=== PATIENT | male | born 1970 | race Caucasian/White ===

== ENCOUNTER 2017-11-08 15:25 | Emergency (ER) | payer BC ==
[2017-11-08 17:43] VITALS: BP 103/69
[2017-11-08] MEDS ORDERED: Amoxicillin PO (*) 500 MG CAP PO ONE (18:31)
--- NOTE | 2017-11-08 18:33 | UC ---
Throat Pain/Nasal Lalo HPI - HPI Summary HPI Summary: sore throat and low grade fever several days ago. Denies cough, nasal discharge - History of Current Complaint Chief Complaint: UCRespiratory Stated Complaint: SORE AND SWOLLEN THROAT Time Seen by Provider: 11/08/17 17:56 Hx Obtained From: Patient Onset/Duration: Gradual Onset, Lasting Days Severity: Moderate Pain Intensity: 3 Cough: None - Epiglottits Risk Factors Epiglottis Risk Factors: Negative - Allergies/Home Medications Allergies/Adverse Reactions: Allergies Allergy/AdvReac Type Severity Reaction Status Date / Time No Known Allergies Allergy Verified 11/08/17 17:43 PMH/Surg Hx/FS Hx/Imm Hx Previously Healthy: Yes - Surgical History Surgical History: None - Social History Alcohol Use: Weekly Substance Use Type: None Smoking Status (MU): Never Smoked Tobacco Review of Systems ENT: Sore Throat All Other Systems Reviewed And Are Negative: Yes Physical Exam Triage Information Reviewed: Yes Appearance: Well-Appearing, Well-Nourished Vital Signs: Initial Vital Signs Temp 98.2 F 11/08/17 17:39 Pulse 76 11/08/17 17:39 Resp 18 11/08/17 17:39 BP 103/69 11/08/17 17:39 Pulse Ox 99 11/08/17 17:39 Vital Signs Reviewed: Yes Eyes: Positive: Conjunctiva Clear ENT: Positive: Pharyngeal erythema, TMs normal, Uvula midline Neck: Positive: Supple, Nontender, No Lymphadenopathy Respiratory: Positive: Chest non-tender, Lungs clear, Normal breath sounds, No respiratory distress Cardiovascular: Positive: RRR, No Murmur, Pulses Normal Throat Pain/Nasal Course/Dx - Course Course Of Treatment: Rapid strept positive, started on first dose of amoxil at and continue for 10 days. Tylenol as needed, oral hydration, probiotics, f/u PCP - Differential Dx/Diagnosis Provider Diagnoses: Streptococcal pharyngitis Discharge - Sign-Out/Discharge Documenting (check all that apply): Discharge - Discharge Plan Condition: Stable Disposition: HOME Patient Education Materials: Pharyngitis (ED) Referrals: Ralph Thomason MD [Primary Care Provider] - - Billing Disposition and Condition Condition: STABLE Disposition: HOME
== END 2017-11-08 18:45 | disposition home or self-care (01) ==
LOC: UCEAST 15:25
DX: J02.0 Streptococcal pharyngitis (principal)
CPT/HCPCS: 87651; 99202; A9270-GY; G0463

== ENCOUNTER 2018-11-07 16:40 | Emergency (ER) | payer BC ==
[2018-11-07 16:46] VITALS: BP 112/65
[2018-11-07] MEDS ORDERED: Tetan/Diph/Pertus SYR(Tdap)* 0.5 ML SYR(BOOSTRIX) use SYR IM ONE (16:53)
[2018-11-07] MEDS ORDERED: Lidocaine 1%* 5 ML VIAL INJ ONE (17:49)
--- NOTE | 2018-11-07 18:22 | UC ---
Laceration HPI - HPI Summary HPI Summary: 48 y/o male presents to the urgent care c/o Right thumb laceration on metal blade/wood saw about 15 minutes ago. Pt reports he was trimming a courtney tree when it happened. Pt states he can move thumb w/o any difficulty, pain is mild 2 /10 at touch. He is not UTD w/ Tetanus vaccine. Pt denies numbness or tingling sensation over the Rt thumb or Rt hand. bleeding stopped w/ pressure. - History Of Current Complaint Chief Complaint: UCUpperExtremity Stated Complaint: FINGER LAC Time Seen by Provider: 11/07/18 17:06 Hx Obtained From: Patient Laceration Location: Finger - Rt thumb w/ a serrated blade Mechanism Of Injury: Sharp Trauma Onset/Duration: Lasting Hours - 1hr Severity: Moderate Pain Intensity: 3 Pain Scale Used: 0-10 Numeric Aggravating Factors: Movement Related History: Dominant Hand Right - Allergies/Home Medications Allergies/Adverse Reactions: Allergies Allergy/AdvReac Type Severity Reaction Status Date / Time No Known Allergies Allergy Verified 11/07/18 16:46 PMH/Surg Hx/FS Hx/Imm Hx Previously Healthy: Yes - Pt denies PMHX - Surgical History Surgical History: None - Family History Known Family History: Positive: None - Pt denies FMHX - Social History Occupation: Employed Full-time Lives: With Family Alcohol Use: Rare Substance Use Type: None Smoking Status (MU): Never Smoked Tobacco - Immunization History Hx Tetanus, Diphtheria Vaccination: No - Pt can't recall when was last Tdap Review of Systems All Other Systems Reviewed And Are Negative: Yes Constitutional: Positive: Negative Skin: Positive: Other - laceraion of Rt thumb w/ a serrated blade Eyes: Positive: Negative ENT: Positive: Negative Respiratory: Positive: Negative Cardiovascular: Positive: Negative Gastrointestinal: Positive: Negative Genitourinary: Positive: Negative Motor: Positive: Negative Neurovascular: Positive: Negative Musculoskeletal: Positive: Other: - RT thumb pain s/p laceration Neurological: Positive: Negative Psychological: Positive: Negative Is Patient Immunocompromised?: No Physical Exam - Summary Physical Exam Summary: Vital Signs Reviewed: Yes General: well developed, well nourished male sitting in the examining table w/o any apparent distress Eye Exam: Normal Eyes: Positive: Conjunctiva Clear - PERRLA, EOMI, fundi grossly normal ENT: Positive: Normal ENT inspection, Hearing grossly normal, Pharynx normal, TMs normal Neck: Positive: Supple, Nontender, No Lymphadenopathy Respiratory: Positive: Chest non-tender, Lungs clear, Normal breath sounds, No respiratory distress Cardiovascular: Positive: RRR, No Murmur, Pulses Normal, Brisk Capillary Refill Abdomen Description: Positive: Nontender, No Organomegaly, Soft. Negative: CVA Tenderness (R), CVA Tenderness (L) Bowel Sounds: Positive: Present Musculoskeletal: Positive: Strength Intact, ROM Intact, No Edema Neurological: Positive: Alert, Muscle Tone Normal Psychological Exam: Normal Skin: Positive:dorsal side of Rt thumb over the DIPJ with a linear superficial laceration about 1.7cm in size, non bleeding , no foreign body observed. mild tenderness to palpation, no bruises . FROM of RT hand and Rt thumb arm, sensation intact, capillary refill brisk, and pulses WNL. Triage Information Reviewed: Yes Vital Signs: Initial Vital Signs Temp 97.3 F 11/07/18 16:43 Pulse 70 11/07/18 16:43 Resp 16 11/07/18 16:43 BP 112/65 11/07/18 16:43 Pulse Ox 97 11/07/18 16:43 Laceration Repair - Laceration Repair 1 Description: Linear - superficil laceration on the RT thumb dorsal side over the DIPJ Laceration Size After Repair: Length (cm) - 1.7cm Modified For Repair: Yes Anesthesia Used: 1.0% Lido - 2ml Cleansing Completed Via Routine Prep: Yes Irrigation With Pressure Irrigation Device: Yes Closure Material: Sutures - 5 Closure Method: Single Layer Suture Of: Skin, SQ Suture Type: Nylon Laceration Course/Dx - Course/Dx Course Of Treatment: 48 y/o male presents to the urgent care c/o Right thumb laceration on metal blade/wood saw about 15 minutes ago. Pt reports he was trimming a courtney tree when it happened. Pt states he can move thumb w/o any difficulty, pain is mild 2 /10 at touch. He is not UTD w/ Tetanus vaccine. Pt denies numbness or tingling sensation over the Rt thumb or Rt hand. bleeding stopped w/ pressure. Hx obtained. Pt w/ dorsal side of Rt thumb over the DIPJ with a linear superficial laceration about 1.7cm in size, non bleeding , no foreign body observed. mild tenderness to palpation, no bruises LACERATION PROCEDURE NOTE: . Copious irrigation was done with saline by the nurse and the wound explored. There was no FB or deep structure injury noted. FROM of Rt thumb. procedure was explained and consent obtained, Timeout performed. The wound was anesthetized by digital block at the base of the Rt thumb with 2 mL of 1% lido with good anesthesia. Sterile drape and prep were don. There were 5 sutures with 5.0 nylon type of suture. The length of the wound after closure was 1.7cm. No debridement done. Pt tolerated the procedure well without adverse effects. Neurovascular intact and FROM. Tdap ordered and applied by nurse. Pt advised to f/u suture removal in 10-12 days and if any signs of infection develop to immediately return to the urgent care of PCP for further management and treatment. Pt understood and agreed and left the clinic ambulating A&Ox3. - Differential Dx - Laceration/Wound Differental Diagnoses: Abrasion, Avulsion, Foreign Body, Laceration, Puncture Wound, Tendon Laceration - Diagnosis Provider Diagnosis: Laceration of right thumb Discharge - Sign-Out/Discharge Documenting (check all that apply): Patient Departure - D/C home All imaging exams completed and their final reports reviewed: No Studies - Discharge Plan Condition: Stable Disposition: HOME Prescriptions: Bacitracin OINTMENT* 1 applic TOPICAL BID #1 tube Patient Education Materials: Care For Your Stitches (ED), Laceration (ED) Referrals: Ralph Thomason MD [Primary Care Provider] - 2 Weeks Additional Instructions: 1-Please apply Bacitracin topical antibiotic over the wound. Keep wound clean and dry 2- F/u suture removal in 10-12 days days w/ your PCP or here at the urgent care. 3-Take Ibuprofen or Tylenol PO q6-8hrs prn for pain or swelling. 4- If you develop fever or redness around your finger despite the antibiotic please go to the ER immediately or return to the Urgent care. - Billing Disposition and Condition Condition: STABLE Disposition: Home
== END 2018-11-07 18:34 | disposition home or self-care (01) ==
LOC: UCEAST 16:40
DX: S61.011A Laceration without foreign body of right thumb without damage to nail, initial encounter (principal); W27.8XXA Contact with other nonpowered hand tool, initial encounter; Y93.89 Activity, other specified; Y92.9 Unspecified place or not applicable; Z23 Encounter for immunization
CPT/HCPCS: 12001; 12041; 90471; 90715; 99211; G0010; G0463